=== PATIENT | female | born 1965 | race Caucasian/White ===

== ENCOUNTER 2021-02-01 10:56 | Inpatient (IN) | payer OTHER ==
[~2021-02-01] VITALS: Ht 165.1 cm; Wt 182.1 kg
[2021-02-01] MEDS ORDERED: METOPROLOL SUC200 MG PO (11:27)
--- NOTE | 2021-02-01 16:02 | NUR ---
BARIATRIC BED ORDERED FOR RENT FROM [facility], CONFIRMATION NUMBER [id number].
--- NOTE | 2021-02-01 16:05 | NUR ---
[facility] CALLED RECRUITING ASSISTANT SAID THEY ARE COMPLETELY OUT OF BARIATRIC PRODUCTS AT THIS TIME. WILL CALL TO NOTIFY WHEN A BED IS AVAILABLE IF WE STILL HAVE A NEED.
[2021-02-01] MEDS ORDERED: IBU-200200 MG PO (18:00)
[2021-02-01] MEDS ORDERED: TYLENOL325 MG PO (18:00)
[2021-02-01] MEDS ORDERED: SINUS CONGST-P1 EACH PO (18:01)
[2021-02-01] MEDS ORDERED: IMODIUM A-D2 M2 PO (18:01)
--- NOTE | 2021-02-01 18:01 | NUR ---
MED REC COMPLETE
--- NOTE | 2021-02-01 18:30 | NUR ---
PT ARRIVED TO FLOOR VIA WHEEL CHAIR. PT IS ON 2L NC. ALERT AND ORIENTED. PT DOES NOT WANT TO GET IN BED. SITTING UP IN CHAIR. STANDING WEIGHT OBTAINED. PT DOES NOT USE ASSISTIVE DEVICES. ROOM AIR TRIAL SHOWS SPO2 AT 90-91%. PT AMBULATED TO BED AND BACK STAYING AT 92%. PT THEN WALKED TO BATHROOM AND DESATED TO 86% ON RA. PT PLACED BACK ON 2L NC. FAMILY TO BRING IN CPAP FOR NIGHT. ASSESSMENT COMPLETED. VITAL TAKEN. PT WITH ELEVATED BLOOD PRESSURE. DR TALBERT NOTIFIED. DINNER ORDERED. MEDICATIONS ADMINSTERED. PT WITH NO PAIN. LUNGS SOUND DIM. 2+EDEMA PRESENT IN BILAT LE. HEART SOUNDS DISTANT. PT DENEIS SOB. CALL LIGHT AND PERSONAL ITEMS LEFT IN REACH.
--- NOTE | 2021-02-01 18:47 | EKG ---
[facility] [address] [facility] [address] [place], [place] [address] Signed Normal sinus rhythm Possible Left atrial enlargement Right axis deviation Nonspecific T wave abnormality Abnormal ECG No previous ECGs available Confirmed by JUNE TALBERT DO ([id number]) on 02/01/2021 6:47:16 PM Electronically Signed By: JUNE TALBERT DO 02/01/21 1847 PATIENT NAME: MIGUEL RECINOS NAZIA Electrocardiogram DATE OF : 69 PHYSICIAN: JUNE TALBERT DO REPORT #: [id number] REPORT IS CONFIDENTIAL AND NOT TO BE RELEASED WITHOUT AUTHORIZATION
--- NOTE | 2021-02-01 19:31 | NUR ---
SHIFT REPORT RECEIVED FROM VERONA GALEANO. PT UP IN CHAIR. SPO2 92% ON 2L NC. NO NEEDS AT THIS TIME. CALL LIGHT IN REACH.
--- NOTE | 2021-02-01 20:00 | NUR ---
in to assist pt up to the toilet, pt dressing in personal nightgown, pt tring to shower self off after bm, pt is sob after activity, rn aware, pt back to the chair, vitals done, i&os, fresh ice water given, no further needs at this time
--- NOTE | 2021-02-01 20:22 | NUR ---
ASSESSMENT, VS AND I&O COMPLTED. PT SPO2 DROPS INTO 70s WHILE WALKING TO BR AND BACK TO BED, O2 INCREASED TO 3L NC. BSC PROVIDED FOR FUTURE USE. SPO2 93% ON 3L NC AT REST. IV WNL, CDI, FLUSHED WELL. GCS 15, A&O X4. LUNGS CLEAR IN UPPER LOBES AND DIMINISHED IN LOWER LOBES. BREATHING IS SHALLOW AND DYSPNEA WITH ACTIVITY. PRONING AND I.S. EDUCATION PROVIDED, PT VERBALIZES UNDERSTANDING. PT HAS 3+ EDEMA IN BLE. PT DENIES PAIN. ICE WATER PROVIDED. NO OTHER NEEDS. CALL LIGHT IN REACH.
--- NOTE | 2021-02-01 23:03 | NUR ---
PT RESTING IN BED ON LEFT SIDE. SPO2 92% ON 3L NC. CALL LIGHT IN REACH.
--- NOTE | 2021-02-02 01:15 | NUR ---
PT CALLS TO USE BSC, PROVIDED. PT UNABLE TO PROVIDE SELF CARE AFTER BM, PROIDED. PT HAS RED AREAS IN GROIN, AREAS CLEANED AND MED ORDERED. VS AND I&O COMPLETED. SPO2 95% ON 3L CPAP. NO OTHER NEEDS AT THIS TIME. CALL LIGHT IN REACH.
--- NOTE | 2021-02-02 03:50 | NUR ---
PT SPO2 88%. IN ROOM TO ASSESS. LUNGS CLEAR IN UPPER LOBES BUT DIMINISHED IN ALL LOBES. BLE 3+ EDEMA. BIPAP O2 TURNED TO 4L, SPO2 92%. ASSESSMENT COMPLETED. NO OTHER NEEDS. CALL LIGHT IN REACH.
--- NOTE | 2021-02-02 04:09 | NUR ---
RT NOTIFIED OF PT O2 UP TO 4L WITH BIPAP.
--- NOTE | 2021-02-02 05:30 | NUR ---
VS AND I&O COMPLTED. ATTEMPTED BLOOD DRAW WITHOUT SUCCESS. PT UP TO BSC AND BACK TO BED. SPO2 93% ON CPAP WITH 4L. CALL LIGHT IN REACH.
--- NOTE | 2021-02-02 06:19 | NUR ---
PT SLEPT WELL THIS SHIFT. PT REFUSED TO PRONE BUT LAYS ON LEFT SIDE. PT USED HER OWN CPAP ON 4L MOST OF THE SHIFT. LUNG SOUNDS HAVE BEEN CLEAR BUT DIM. PT HAS A DRY OCCASSINOAL COUGH. UOS, VSS. PT SPO2 DROPS INTO THE 70s WITH ACTIVITY SO SHE IS USING A BSC. PT HAS HAD ONE EPISODE OF LOOSE STOOL THIS SHIFT. PT IS A SBA IN ROOM, DENIES USE OF ASSISTIVE DEVICE AT HOME. PT DENIES SOB WITH ACTIVITY BUT HAS TACHYPNEA FOR A COUPLE OF MINUTES AFTER TRANSFERING.
--- NOTE | 2021-02-02 08:24 | NUR ---
Assited patient to commode for void. Patient reports she did not sleep well last night due to ppl checking on her so frequently. Patient states she feels her breathing has improved this morning. Respirations are even and non labored; 4L per nc, sp02 93%. No reported needs. Personal supplies and call light within reach.
--- NOTE | 2021-02-02 09:45 | NUR ---
Patient is interested in a bed bath today sometime after her nap. Patient may eat more than 25% of breakfast a little later. Call light is in reach and patient is in chair. Vitals & I&Os are complete. RN said she would document vitals.
--- NOTE | 2021-02-02 10:29 | NUR ---
PATIENT TO BSC AND BACK TO CHAIR, SBA. CASANDRA CARE DONE. CALL LIGHT IN REACH. NO FURTHER NEEDS AT THIS TIME.
--- NOTE | 2021-02-02 14:50 | NUR ---
PATIENT IN CHAIR WATCHING TV. VITALS AND I&O'S CHARTED. FRESH WATER GIVEN. CALL LIGHT IN REACH. NO FURTHER NEEDS AT THIS TIME.
--- NOTE | 2021-02-02 15:09 | NUR ---
Patient sitting up in chair, respirations even and non lobored. Patient denies sob at rest, cpox intact, sat level 94% on 4L. Patient tolerating her diet well and is drinking plenty of fluids. Encouraged patient to get back for proning protocol alvaro; pt reports she is unable to prone and she will instead lay side to side. No current needs. Personal supplies and call light within reach.
--- NOTE | 2021-02-02 16:12 | NUR ---
CALLED THE UNIT TO LET ALL THE NURSES KNOW THAT 114 IS TO BE ALLOWED TO BE INDEPENDENT IN HER ROOM
--- NOTE | 2021-02-02 18:09 | NUR ---
Missed hat void. Hats replaced toilet.
--- NOTE | 2021-02-02 19:18 | NUR ---
SHIFT REPORT RECEIVED FROM TAMMIE GALEANO. PT UP IN CHAIR, TALKING ON PHONE. SPO2 92% ON 2L NC. CALL LIGHT IN REACH.
--- NOTE | 2021-02-02 20:45 | NUR ---
SUPPLY CHAIN SYSTEMS MANAGER ROUNDING NOTE. PT RESTING IN RECLINER. URINE SAMPLE OBTAINED. VS OBTAINED, CBG OBTAINED. PT REQUESTS FOR OINTMENT TO BE PLACED ON FEET. PT REPORTS NEW AREAS OF REDNESS AND CHAPPED SKIN TO BILATERAL TOPS OF FEET. PRIMARY RN TO ROOM. PT DENIES FURTHER NEEDS. CALL LIGHTIN REACH. WHITE BOARD UPDATED.
--- NOTE | 2021-02-02 21:30 | NUR ---
ASSESSMENT COMPLETED. SCHEDULED MEDS PROVIDED. PT REPORTS 5/10 MOON PAIN, PRN TYLENOL PROVIDED. GCS 15, A&O X4. LUNGS CLEAR IN UPPER LOBES AND DIM IN LOWER LOBES. ABD OBESE, NONTENDER, BOWEL TONES ACTIVE. 3+ BLE EDEMA, BOTH FEET ARE RED AND WARM. CMS INTACT. SPO2 92% ON 2L NC. IV WNL, CDI, FLUSHED WELL. ICE WATER PROVIDED. NO OTHER NEEDS. CALL LIGHT IN REACH.
--- NOTE | 2021-02-02 23:00 | NUR ---
PT RESTING IN BED ON LEFT SIDE. SPO2 93% ON 4L CPAP. CALL LIGHT IN REACH.
--- NOTE | 2021-02-03 00:36 | NUR ---
PT SPO2 GOES DOWN TO 80%. PT LAYING ON BACK. PT EDUCATED TO LAY MORE ON SIDE, PT MOVED TO LEFT SIDE. SPO2 GOES UP TO 91% ON CPAP 4L. NO OTHER NEEDS. CALL LIGHT IN REACH.
--- NOTE | 2021-02-03 02:17 | NUR ---
SPO2 AT 88% ON 6L CPAP. PT ASKED TO REPOSITION HER MASK AND MOVE MORE TO HER SIDE. PT FOLLOWS REQUESTS AND SPO2 IS 95%. NO OTHER NEEDS. CALL LIGHT IN REACH.
--- NOTE | 2021-02-03 04:00 | NUR ---
ASSESSMENT COMPLETED. LUNGS CLEAR IN UPPER LOBES AND DIMINISHED IN ALL LOBES. CPAP @ 4L, SPO2 94%. BLE EDEMA 3+. REDNESS AND SWELLING IN FEET UNCHANGED. NO OTHER NEEDS. CALL LIGHT IN REACH.
--- NOTE | 2021-02-03 07:44 | NUR ---
this rn received report from berta hammer. pt appears to be resting at this time
--- NOTE | 2021-02-03 08:45 | NUR ---
THIS RN IN PTS ROOM TO DO PTS ASSESSMENT AND GIVE MORNING MEDS. PT STATES THAT SHE HAS A HEADACHE THIS AM. THIS RN PROVIDED PT WITH 650MG OF TYLENOL AT THIS TIME. THIS RN DISCUSSED PTS MEDS WITH HER THIS AM AND ATTEMPTED TO TEACH HER ABOUT HER INSULIN AND BLOOD SUGAR CHECKS. PT IN DENIAL ABOUT THE POSSIBLITY OF BEING DIGANOSED WITH DIABETES, PT NOT RECEPTIVE TO THIS TEACHING AT THIS TIME. PT HAS NO OTHER NEEDS THAT NEED TO BE ADDRESSE AT THIS TIME.
--- NOTE | 2021-02-03 09:35 | NUR ---
THIS RN IN PTS ROOM TO TURN OFF PTS IV REMDESIVIR. PT STATES THAT SHE IS TIRED. THIS RN ENCOURAGE PT TO TAKE A NAP, PT NOT READY TO GET BACK TO BED. PROVIDED PT WITH A WARM BLANKET- PT WILL CALL WHEN READY TO GET BACK TO BED.
--- NOTE | 2021-02-03 10:46 | NUR ---
PT BACK TO BED PER ASSISTANCE FROM CISCO MORGAN. PT BACK ON CPAP DUE TO SLEEP APNEA DIGANIOSIS.
--- NOTE | 2021-02-03 15:35 | NUR ---
THIS RN IN TO CHECK ON PT AND GIVE MEDS. PT APPEARS TO BE RESTIN GSOUNDLY WITH CPOX IN PLACE. THIS RN TO ALLOW PT TO REST AND WILL CHECK BACK LATER FOR PRN MEDS. PT USING CPAP WHILE RESTING AND IS SIDELYING ON HER LEFT SIDE AT THIS TIME.
--- NOTE | 2021-02-03 17:25 | NUR ---
THIS RN IN PTS ROOM TO GIVE PT HER PRN MEDS AND INSULIN. PT DOING WELL AND GETS TO THE RESTROOM, PT USES THE SHOWER TO RINSE HER CASANDRA AREA DUE TO PANUS SIZE AND INABILITY TO WIPE HERSELF. THIS RN DID PROVIDE PT WITH HYDRALIZE DUE TO SBP BEING 185.
--- NOTE | 2021-02-03 19:10 | NUR ---
PSHIFT REPORT RECEIVED FROM RACHAEL GALEANO. PT RESTING IN BED. CPOX 93% ON 2L NC. CALL LIGHT IN REACH.
--- NOTE | 2021-02-03 20:30 | NUR ---
ASSESSMENT, VS AND I&O COMPLETED. SCHEDULED MEDS PROVIDED. PRN HTN MED PROVIDED. GCS 15, A&O X4. LUNGS CLEAR IN UPPER LOBES AND DIM IN LOWER LOBES. HEART TONES REGULAR. CMS INTACT. BLE EDEMA 2+ WITH MILD RED AREA ON DORSAL FEET. IV WNL, CDI, FLUSHED WELL. SPO2 95% ON 2L NC. ICE WATER PROVIDED. NO OTHER NEEDS. CALL LIGHT IN REACH.
--- NOTE | 2021-02-04 | NUR ---
PT CALLS TO REPORT SHE IS BLEEDING. SITE ON ABD OF ENOXAPARIN INJECTION IS SEEPING SMALL AMOUNT OF RED BLOOD. BANDAID APPLIED. NO OTHER NEEDS AT THIS TIME. CALL LIGHT IN REACH.
--- NOTE | 2021-02-04 02:13 | NUR ---
PT RESTING IN BED. SPO2 92% ON CPAP 6L. CALL LIGHT IN REACH.
--- NOTE | 2021-02-04 04:09 | NUR ---
PT SPO2 87%. PT WOKE AND REMINDED TO ADJUST MASK AND LAY ON SIDE. SPO2 RETURNS TO 97% ON CPAP @ 6L. ASSESSMENT COMPLETED. LUNGS CLEAR IN UPPER LOBES, DIM IN LOWER LOBES. BLE EDEMA 2+, FOOT REDNESS UNCHANGED. LEFT ABD SITE THAT BLED EARLIER IS CDI. BLANKET PROVIDED. NO OTHER NEEDS. CALL LIGHT IN REACH.
--- NOTE | 2021-02-04 06:06 | NUR ---
VS AND I&O COMPLETED. SPO2 92% ON 6L CPAP. ICE WATER PROVIDED. NO OTHER NEEDS. CALL LIGHT IN REACH.
--- NOTE | 2021-02-04 07:37 | NUR ---
this rn received report from berta hammer. pt is getting an echo done at this time.
--- NOTE | 2021-02-04 08:24 | NUR ---
this rn in pts room to give pt morning meds. pt on cpap this am. pt states that she wants to take her meds later. this rn will return later
--- NOTE | 2021-02-04 09:37 | NUR ---
THIS RN TO CHECK ON PT TO GIVE HER MORNING MEDS. PT STILL RESTING ON HER SIDE WITH CPAP IN PLACE. THIS RN WILL CEHCK ON PT LATER TO GIVE MORNING MEDS PER PT REQUEST
--- NOTE | 2021-02-04 10:20 | NUR ---
THIS RN IN PTS ROOM DUE TO PT BEING AWAKE NOW AND READY TO TAKE HER MEDS THIS AM. PT HAS CONCERNS ABOUT FINANCIALLY PAYING FOR HOSPITAL STAY- CB FROM CASE MANAGEMENT TO ANSWER THESE QUESTIONS. OTHERWISE PT IS DOING OKAY
--- NOTE | 2021-02-04 11:02 | NUR ---
PATIENT SITTING UP AT SIDE OF BED, HOUSE FATHER IN ROOM. PATIENT WILL NEED OXYGEN WITH ACTIVITY AND WANTS TO USE [facility]. STATES HER CPAP WAS THROUGH THEM. SHE HAS QUESTIONS REGARDING AFFORDING HER BILL. SHE IS REQUESTING HELP WITH IT. DISCUSSED WE CAN GIVE HER A JOSE CRUZ PACKET. 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 PATIENT DOES NOT THINK SHE NEEDS ANYTHING ELSE TO GO HOME SAFELY. SHE IS SOMEWHAT WORRIED ABOUT EXPENSES FROM BEING OFF WORK. SHE JUST STARTED THIS JOB A FEW DAYS AGO AND DOESN'T HAVE ANY SICK TIME BUILT UP OR A FIRST PAYCHECK YET. DISCUSSED OUR CHW PROGRAM HAVING RESOURCE INFORMATION TO HELP IN THIS CASE. SHE IS OPEN TO THIS. DISCUSSED CALIN OUR CHW WILL FOLLOW UP WITH HER.
--- NOTE | 2021-02-04 13:00 | NUR ---
[facility] REP HERE. 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 HE ANSWERED THOSE AT DOOR. SHE IS CALLING HER DAUGHTER WHO IS AT HOME AND HE WILL GO SET UP NOW.
--- NOTE | 2021-02-04 13:30 | NUR ---
OXYGEN WAS SET UP, DISCUSSED WITH STAFF THAT PATIENT CAN DISCHARGE WHEN THEY ARE READY. RECEIVED CONFIRMATION FROM [facility] THAT THEY RECEIVED ALL PAPERWORK THAT WAS FAXED.
[2021-02-04] MEDS ORDERED: FREESTYLE LITE1 EAC1 TD (13:41)
[2021-02-04] MEDS ORDERED: FREESTYLE FREE1 EAC1 MISC (13:45)
[2021-02-04] MEDS ORDERED: ACCU-CHEK1 EAC1 MISC (13:45)
[2021-02-04] MEDS ORDERED: INSULIN SYRING1 EA47 MISC (13:46)
[2021-02-04] MEDS ORDERED: METAMUCIL0.52 GM PO (13:48)
[2021-02-04] MEDS ORDERED: AMLODIPINE BESY10 MG PO (13:48)
[2021-02-04] MEDS ORDERED: DEXAMETHASONE6 MG PO (13:48)
[2021-02-04] MEDS ORDERED: HUMALOG100 UNITS/ SUB-Q (13:54)
--- NOTE | 2021-02-04 15:05 | NUR ---
APPROXIMATELY AT THIS TIME PT FELL IN ROOM. RAISSA GALEANO NEXT DOOR AND HEARD PT CALLING OUT FOR HELP. THIS RN NOTIFIED THAT PT HAD A FALL. PT ON FLOOR OF ROOM NEAR DOOR. PT REPORTS THAT SHE DID NOT HIT HER HEAD AND SHE STATES THAT SHE NO NOTED PAIN. PT REPORTS THAT SHE TRIPPED OVER THE "DOCTORS CHAIR" (ROLLING CHAIR) AND WAS ABLE TO CONTROL HER FALL TO THE FLOOR. PT REPORTS CONTROLLED FALL TO THE GROUND BUT WAS NOT ABLE TO GET UP. RAISSA GALEANO, BABATUNDE (HIGH TENSION TESTER), AND LARS MORGAN WERE ABLE TO GET UP WITH A 3 PERSON MODERATE ASSIST TO GET UP. WHEN PT BACK UP TO CHAIR PT STILL REPORTS NO PAIN. AWARE. PT HAS BEEN INDEPENTDENT IN ROOM WITH NO AMBULATION ISSUES.
--- NOTE | 2021-02-04 15:19 | NUR ---
EDDIE RASCON WALKED BY PATIENTS ROOM AND SAW PATIENT SITTING ON GROUND. EDDIE RASCON INFORMED THIS SHOVEL LOGGER AND WALESKA HAJI AND FRUIT PICKER IN ROOM TO HELP THIS SHOVEL LOGGER UP. ASKED PATIENT IF SHE WAS HURT OR HIT HEAD, PATIENT SAID NO TO BOTH. AND WALESKA CANO NOTIFIED. VITALS TAKEN. PATIENT NOW SITTING IN CHAIR, RN IN ROOM TO GO OVER DISCHARGE INSTRUCTIONS. CALL LIGHT IN REACH. NO FURTHER NEEDS AT THIS TIME.
[2021-02-04] MEDS ORDERED: LASIX20 MG PO (17:16)
== END 2021-02-04 16:00 | disposition home or self-care (01) | DRG 177 ==
LOC: ED 10:56 → MS 10:59 → ED 15:42 → MS 02-02 16:09
PROVIDERS: ADMIT Student in an Organized Health Care Education/Training Program; ATTEND Student in an Organized Health Care Education/Training Program
PROC: 8E0ZXY6 Isolation (ICD-10-PCS; principal; 2021-02-02)
PROC: 3E0333Z Introduction of Anti-inflammatory into Peripheral Vein, Percutaneous Approach (ICD-10-PCS; 2021-02-02)
PROC: XW033E5 Introduction of Remdesivir Anti-infective into Peripheral Vein, Percutaneous Approach, New Technology Group 5 (ICD-10-PCS; 2021-02-02)
DX: U07.1 COVID-19 (principal); J96.01 Acute respiratory failure with hypoxia; J12.82 Pneumonia due to coronavirus disease 2019; Z68.42 Body mass index [BMI] 45.0-49.9, adult; E66.01 Morbid (severe) obesity due to excess calories; E11.65 Type 2 diabetes mellitus with hyperglycemia; I10 Essential (primary) hypertension; T38.0X5A Adverse effect of glucocorticoids and synthetic analogues, initial encounter; Z79.899 Other long term (current) drug therapy
CPT/HCPCS: 36600; 71045; 80053; 80500; 81001; 82803; 83036; 83880; 84484; 85025; 85379; 93005; 93010; 93306; 94640; 94664; 94760; 94761; A9270; C9803; J1100; J1650; J1815; J1940; J7050; Q9957

== ENCOUNTER 2021-10-10 03:37 | Inpatient (IN) | payer OTHER ==
[~2021-10-10] VITALS: Ht 165.1 cm; Wt 144.3 kg
[~2021-10-10 03:37] MED LIST: ACCU-CHEK1 EAC1 MISC; AMLODIPINE BESY10 MG PO; DEXAMETHASONE6 MG PO; FREESTYLE FREE1 EAC1 MISC; FREESTYLE LITE1 EAC1 TD; HUMALOG100 UNITS/ SUB-Q; IBU-200200 MG PO; IMODIUM A-D2 M2 PO; INSULIN SYRING1 EA47 MISC; LASIX20 MG PO; METAMUCIL0.52 GM PO; METOPROLOL SUC200 MG PO; SINUS CONGST-P1 EACH PO; TYLENOL325 MG PO
[2021-10-10] MEDS ORDERED: FUROSEMIDE80 MG PO (03:59)
[2021-10-10] MEDS ORDERED: GLIMEPIRIDE2 MG PO (03:59)
[2021-10-10] MEDS ORDERED: VITAMIN D325 MC2 PO (12:03)
[2021-10-10] MEDS ORDERED: MAGNESIUM500 MG PO (12:07)
[2021-10-10] MEDS ORDERED: PROBIOTIC1 EAC1 PO (12:10)
[2021-10-23] MEDS ORDERED: PROPRANOLOL HCL20 MG PO (15:49)
[2021-10-23] MEDS ORDERED: SERTRALINE HCL50 MG PO (15:50)
[2021-10-23] MEDS ORDERED: SPIRONOLACTONE25 MG PO (15:50)
[2021-10-23] MEDS ORDERED: GLIMEPIRIDE2 MG PO (15:51)
[2021-10-23] MEDS ORDERED: CLINDAMYCIN HC300 MG PO (15:52)
== END 2021-10-24 18:10 | disposition home or self-care (01) | DRG 291 ==
LOC: ED 03:37 → MS 08:05 → CCU 08:05 → MS 10-11 18:20
PROVIDERS: ADMIT Internal Medicine; ATTEND Internal Medicine
DX: I11.0 Hypertensive heart disease with heart failure (principal); I50.23 Acute on chronic systolic (congestive) heart failure; Z68.44 Body mass index [BMI] 60.0-69.9, adult; K76.6 Portal hypertension; R18.8 Other ascites; L03.311 Cellulitis of abdominal wall; N17.9 Acute kidney failure, unspecified; Z20.822 Contact with and (suspected) exposure to COVID-19; E66.01 Morbid (severe) obesity due to excess calories; I27.20 Pulmonary hypertension, unspecified; K74.60 Unspecified cirrhosis of liver; U09.9 Post COVID-19 condition, unspecified; E11.9 Type 2 diabetes mellitus without complications; Z98.890 Other specified postprocedural states; Z79.899 Other long term (current) drug therapy; Z79.84 Long term (current) use of oral hypoglycemic drugs; K80.20 Calculus of gallbladder without cholecystitis without obstruction; F32.9 Major depressive disorder, single episode, unspecified; D72.829 Elevated white blood cell count, unspecified
CPT/HCPCS: 36415; 36569; 71045; 74176; 74177; 80048; 80053; 80202; 81001; 82553; 82728; 83036; 83540; 83550; 83605; 83690; 83735; 83880; 85025; 85060; 85610; 87040; 87502; 93306; 93971; 94640; 94660; 94760; 94761; 94762; 97110; 97112; 97116; 97162; 97165; 97530; 97535; A9270; C1751; C9803; J0692; J0696; J1120; J1650; J1815; J1940; J3370; J3490; J7030; J7060; Q9967; U0003

== ENCOUNTER 2022-01-07 15:04 | Inpatient (IN) | payer OTHER ==
[~2022-01-07] VITALS: Ht 170.2 cm; Wt 119.0 kg
--- NOTE | ~2022-01-07 | EKG ---
[facility] [address] [facility] [place], [place] [address] Draft EK completed, results pending confirmation PATIENT NAME: JORJEMIGUEL SOLIMAN Electrocardiogram DATE OF : 69 PHYSICIAN: PRELIMINARY REPORT #: [id number] REPORT IS CONFIDENTIAL AND NOT TO BE RELEASED WITHOUT AUTHORIZATION
[~2022-01-07 15:04] MED LIST changes: +CLINDAMYCIN HC300 MG PO; +FUROSEMIDE80 MG PO; +GLIMEPIRIDE2 MG PO; +MAGNESIUM500 MG PO; +PROBIOTIC1 EAC1 PO; +PROPRANOLOL HCL20 MG PO; +SERTRALINE HCL50 MG PO; +SPIRONOLACTONE25 MG PO; +VITAMIN D325 MC2 PO
[2022-01-07] MEDS ORDERED: GLIMEPIRIDE1 MG PO (17:33)
[2022-01-07] MEDS ORDERED: PROPRANOLOL HC160 MG PO (17:33)
--- NOTE | 2022-01-07 23:13 | NUR ---
PT TO FLOOR VIA STRETCHER APPROX 0. ALERT AND ORIENTED. SBA TO BR TO VOID AN UNMEASURED AMOUNT. STAFF ASSIST WITH CASANDRA CARE. BACK TO BED. ISAÍAS ACTIVITY WELL. ORDERS RECEIVED. WEIGHT AND VS OBTAINED. PRN FOR PAIN AND NAUSEA ADMIN PER EMAR. NGT TO LIWS WITH MODERATE AMOUNT GREEN DRAINAGE. BOWEL TONES HYPOACTIVE. IVF INFUSING PER ORDER. DISCUSSED PLAN OF CARE. PT ORIENTED TO ROOM AND NURSE CALL LIGHT. NO FURTHER QUESTIONS AT THIS TIME. CALL LIGHT IN REACH.
--- NOTE | 2022-01-07 23:38 | NUR ---
PT RESTING ON LEFT SIDE. HOB ELEVATED >30 DEGREES. IV ABX INFUSING PER ORDER.
--- NOTE | 2022-01-08 02:47 | NUR ---
VS AND I&O COMPLETE. PRN FOR PAIN ADMIN PER EMAR FOR HEADACHE/THROAT PAIN. PT NPO. NGT PATENT WITH 550 ML DARK GREEN DRAINAGE. IVF INFUSING PER ORDER. SpO2 80'S. PT UNABLE TO WEAR CPAP WITH NGT. OXYGEN 2L/NC PLACED. SpO2 MID 90'S. HOB ELEVATED. PT DENIES NEEDS AT THIS TIME. CALL LIGHT IN REACH.
--- NOTE | 2022-01-08 07:00 | NUR ---
BEDSIDE HANDOFF REPORT RECEIVED FROM [employer] RN. PT RESTING IN BED, PROVIDED WET WASH CLOTH. NG TO LIWS. PT DENIES OTHER NEEDS AT THIS TIME.
--- NOTE | 2022-01-08 07:01 | NUR ---
PT UP TO BR WITH SBA TO VOID. STAFF ASSIST WITH CASANDRA CARE. BACK TO BED, ISAÍAS WELL. GAIT STEADY. NGT TO LIWS WITH GREEN DRAINAGE. IV ABX INFUSING PER ORDER. DR. IBRAHIM IN TO SEE PT. VS AND I&O COMPLETE. PT DENIES FURTHER NEEDS. CALL LIGHT IN REACH.
--- NOTE | 2022-01-08 08:18 | NUR ---
PATIENT WAS LAYING IN BED, PATIENT DID NOT WANT TO AMBULATE, PATIENT NEEDED NO OTHER ASSISTANCE WARM WASH CLOTH WAS OFFERED, PATIENT SAID "MAYBE LATER"
--- NOTE | 2022-01-08 08:30 | NUR ---
PT RSTING IN BED. PT STATES PAIN IS MINIMAL AT THIS TIME, DENIES NEED FOR PAIN MEDICATION. PT ON 2L NC, LUNG SOUNDS CLEAR, DENIES SOB. BOWEL TONES HYPOACTIVE, NGT TO LIWS. CMS INTACT, WITHOUT EDEMA. IV FLUIDS CHANGED TO LR AT 150 PER ORDER. PT CONCERNED WITH TAKING IV METOPROLOL, STATES PCP "DIDN'T WANT HER ON IT BECUASE IT MAKES HER RETAIN FLUID", DISCUSSED WITH DR. SALINAS AND OK TO GIVE. WALESKA HAJI TO START SECOND IV ACCESS. PT DENIES OTHER NEEDS AT THIS TIME.
--- NOTE | 2022-01-08 09:15 | NUR ---
STARTED ADDITIONAL IV FOR MULT ADMINISTRATIONS THIS MORNING. PT TOLERATED WELL. ADMINISTERED MORNING MEDS PER ORDER. PT ASLEEP BUT RESPONDS TO QUESTIONS. DENIES CONCERNS.
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
--- NOTE | 2022-01-08 10:22 | NUR ---
PATIENT WAS UP AND USED THE RESTROOM, SHE IS SITTING ON THE SIDE OF THE BED, PATIENT VOICED HER IV SITE ON HER RIGHT ARM WAS BOTHERING HER, CHARGE NURSE NOTIFIED AND A WARM PACK WAS APPLIED. PATIENT NEEDED NO OTHER ASSISTANCE. CALL LIGHT WITHIN REACH
--- NOTE | 2022-01-08 11:15 | NUR ---
PT WITH XRAY REPORT STATING NG TUBE SHOULD BE ADVANCED, DISCUSSED WITH DR. IBRAHIM WHO STATES IT WAS ADVANCED IN ER LAST NIGHT, ORDER FOR CHEST XRAY TO CONFIRM PLACEMENT. PT UPDATED ON PLAN, DENIES OTHER NEEDS AT THIS TIME.
--- NOTE | 2022-01-08 14:45 | NUR ---
PT RESTING IN BED. IV ZOSYN AND IV METOPROLOL GIVEN, PT DECLINING 1 UNIT SS HUMALOG SHE DOES NOT TAKE INSULIN AT HOME, DISCUSSED IMPORTANCE OF BLOOD GLUCOSE CONTROL AND PT AGREEABLE IF BLOOD GLUCOSE CONTINUES TO RISE. PT REQUESTING TO SHOWER, NG TUBE CLAMPED FOR SHOWER. PT DENIES OTHER NEEDS AT THIS TIME.
--- NOTE | 2022-01-08 15:15 | NUR ---
PT ASSISTED TO SHOWER, SHOWER GIVEN BY AN RN AND KETTLE GIRL. PT REQUESTED LEGS TO BE SHAVED. LEGS SHAVED. PT ASSISTED BACK TO BED. LOTION APPLIED TO PTS LEGS AND FEET. PTS NURSE NOTIFIED THAT SHOWER IS COMPLETE. NO FURTHER NEEDS AT THIS TIME, CALL LIGHT WITHIN REACH.
--- NOTE | 2022-01-08 17:30 | NUR ---
PT WITH LOW URINE OUTPUT, REPEAT LABS WITH ELEVATED CREATININE AT 1.9. DISCUSSED WITH DR. IBRAHIM AND DR. MALLORY. DR. MALLORY TO PLACE ORDER FOR IV BOLUS AND TO INCREASE FLUIDS TO 200ML/HR.
--- NOTE | 2022-01-08 19:00 | NUR ---
report from baldev hammer, ngt to lcws, o2 2l nc, iv fusing, call light in reach.
--- NOTE | 2022-01-08 20:53 | NUR ---
in pt room for assessment - pt in good spirits, reports pain improved, ngt in place draining dark bile to lcws. bs 115 no coverage. vitals wnl. npo, call light in reach.
--- NOTE | 2022-01-08 21:59 | NUR ---
PATIENT ASSISTED TO THE RESTROOM A SBA TO BR. PATIENT ABLE TO VOID. PATIENT IS BACK IN BED RESTING. NG TO LWIS. PATIENT PLACED ON 2L VIA NC. PATIENTS IV INFUSING PER ORDER. NO FURTHER NEEDS NOTED. CALL LIGHT IN REACH.
--- NOTE | 2022-01-08 22:31 | NUR ---
IV ALARMING, NEW BAG INFUSING. PT WITH EYES CLOSED, OPENED EYES WHEN RN FIRST ENTERED ROOM, SAID THANK YOU. NO OTHER NEEDS AT THIS TIME.
--- NOTE | 2022-01-09 00:32 | NUR ---
PATIENT ASSISTED TO THE RESTROOM A 1PA W/FWW. PATIENT WAS ABLE TO VOID. PATIENT IS BACK IN BED RESTING. PATIENTS NG TO LWIS. PATIENT IS ON 2L VIA NC. PATIENTS IV INFUSING PER ORDER. PATIENT DENIES ANY PAIN OR NAUSEA. NO FURTHER NEEDS NOTED. CALL LIGHT IN REACH.
--- NOTE | 2022-01-09 01:50 | NUR ---
this rn spent 30 min+ with pt to reassure her, she is anxious about her plan of care - possible surgery. she is positive about feeling better this addmission and hopeful for recovery. denies pain, o2 2l nc with ngt in place. iv wnl. vitals complete.
--- NOTE | 2022-01-09 03:51 | NUR ---
PATIENT ASSISTED TO THE RESTROOM A 1PA. PATIENT WAS ABLE TO VOID. PATIENT IS BACK IN BED RESTING. PATIENT IS ON 2L VIA NC. PATIENTS NG PATENT AND HOOKED TO LWIS. PATIENTS IV INFUSING ORDER. PATIENT RATES PAIN AT A 2/10, PRN PAIN MEDICATION GIVEN PER REQUEST AND PER ORDER. PATIENT DENIES ANY NAUSEA. NO FURTHER NEEDS NOTED. CALL LIGHT IN REACH.
--- NOTE | 2022-01-09 05:45 | NUR ---
IV ABX TO PUMP - PT NGT TO LWIS WNL - PT EYES CLOSED, RESP EVEN, CALL LIGHT IN REACH.
--- NOTE | 2022-01-09 08:21 | NUR ---
PT ASSESSMENT COMPLETED AND VS COMPLETED. PT NOW IN TRANSPORT TO SURGERY.
--- NOTE | 2022-01-09 08:30 | NUR ---
Attempted to see pt, she is gone from the room.
--- NOTE | 2022-01-09 09:43 | NUR ---
PT RETURNED TO FLOOR FROM SURGERY. PROCEDURE NOT COMPLETED PER SURGERY NURSE DUE TO PULMONARY HTN.
--- NOTE | 2022-01-09 09:50 | NUR ---
Notified by staff, pt's surgery was cancelled.
--- NOTE | 2022-01-09 11:50 | NUR ---
ROUNDED ON PT. POTASSIUM COMPLETED. PT IS A/O, RESPIRATIONS EVEN AND REGULAR. ASSISTED PT TO RESTROOM.
--- NOTE | 2022-01-09 12:39 | NUR ---
1220- DR IBRAHIM CALLED [facility] REQUESTING TRANSFER BE STARTED TO [facility] HE HAD AREADY SPOKEN WITH DR QUINTEROS AND PT WAS TO BE TRANSFERED. STARTED THE CALL WITH TRANSFER CENTER, NO BEDS AT THIS TIME. TRANSFER CENTER WILL CALL FOR DOC TO DOC AND PLACE ON WAITLIST. 1240- ADVISED BY CHARGE NURSE THAT PTS FAMILY REQUESTED TO TRY OTHER HOSPTIALS. WHEN [facility] CHARGE NURSES SPOKE WITH DR IBRAHIM HE REQUESTED CALLS BE MAKE TO [facility]. 1241- [facility] HAS NO BEDS 1242- [facility] HAS NO BEDS
--- NOTE | 2022-01-09 14:46 | NUR ---
ROUNDED ON PT. PT ASSESSMENT COMPLETED. IV ABX RUNNING. PT IS A/O, RESPIRATIONS EVEN AND REGULAR. HOSPITALIST JUST LEFT BEDSIDE. NG TUBE ON LOW INTERMITTENT SUCTION. CALL LIGHT WITHIN REACH.
--- NOTE | 2022-01-09 16:55 | NUR ---
ROUNDED ON PT. PT APPEARS TO BE SLEEPING COMFORTABLY. IV ABX RUNNING. NG TUBE TO LOW INTERMITTENT SUCTION. CALL LIGHT WITHIN REACH.
--- NOTE | 2022-01-09 18:14 | NUR ---
ROUNED ON PT. PT IS A/O, RESPIRATIONS EVEN AND REGULAR. IV FLUIDS RUNNING. NG TUBE TO LOW INTERMITTENT SUCTION.
--- NOTE | 2022-01-09 19:20 | NUR ---
IN TO ASSIST PT TO THE TOILER, SBA, BACK TO BED, NGT REMAINS TO LOW INTERMT SUCT. NO FURTHER NEEDS AT THIS TIME
--- NOTE | 2022-01-09 19:22 | NUR ---
REPORT RECEIVED FROM NADIA GALEANO. PT IS TALKING ON THE PHONE . NO NEEDS AT THIS TIME.
--- NOTE | 2022-01-09 20:15 | NUR ---
PT IS VERY ANXIOUS, AND HUNGRY. THIS RN EXPLAINED HER SBO AND PURPOSE OF HER NGT. PT VERBALIZED UNDERSTANDING AND SAID SHE COULD TOLERATE THE NGT.
--- NOTE | 2022-01-09 20:45 | NUR ---
spoke with shayla at [facility] regarding transfer. all 4 of their hospitals do not have bed availability at this time.
--- NOTE | 2022-01-09 23:17 | NUR ---
ROUNDS; PT IS SLEEPING. IV PATENT. ABX RUNNING.
--- NOTE | 2022-01-10 00:21 | NUR ---
ROUNDED ON PT . SHE APPEARS TO BE SLEEPING ON HER LEFT SIDE.
--- NOTE | 2022-01-10 01:35 | NUR ---
IV MAINTENANCE FLUIDS HUNG. PT SLEEPING , DID NOT AWAKEN.
--- NOTE | 2022-01-10 05:45 | NUR ---
VS TAKEN, ICE CHIPS FILLED, NO FURTHER NEEDS AT THIS TIME
--- NOTE | 2022-01-10 06:42 | NUR ---
preliminary results for urine culture: gram negative rods noted w/ greater than 100,000 colony forming units per ml. dr menchaca aware, no new orders received at this time. pt already on iv abx- zosyn.
--- NOTE | 2022-01-10 07:53 | NUR ---
CALLED [facility] SPOKE WITH JIMMY. GAVE HER PERTINENT PATIENT INFORMATION. SHE STATES SHE WILL SEE WHAT THEY CAN DO, DOES STATE HOWEVER, "WE DON'T HAVE A LOT OF SURGEON AVAILABILITY AT THIS THIS TIME" WILL CALL BACK.
--- NOTE | 2022-01-10 08:12 | NUR ---
PATIENT UP IN CHAIR AM CARE COMPLETED. NO OTHER NEEDS AT THIS TIME. CALL LIGHT WITHIN REACH.
--- NOTE | 2022-01-10 08:31 | NUR ---
CALLED [facility]SF[facility] [place] TO CHECK PATIENT'S STATUS ON WAIT LIST, SPOKE WITH LEXX. HE STATES PATIENT IS STILL ON WAIT LIST, "NOT MUCH MOVEMENT SINCE SHE WAS PUT ON LAST NIGHT BUT WILL NO MORE AFTER THE DOCTORS DO THEIR ROUNDING, REEVALUATYING WAIT LIST AND WOULD KNOW MORE IN SEVERAL HOURS"
--- NOTE | 2022-01-10 08:41 | NUR ---
CALLED [facility] ([facility]), SPOKE WITH BERNADETTE. SHE STATES THEY HAVE PATIENT'S INFORMATION FROM [facility] NIGHT AND WILL CHECK WITH HOSPITAL RECEPTIONIST WHO IS BUSY AT THIS TIME, WILL HAVE THEM CALL BACK WITH AN UPDATE.
--- NOTE | 2022-01-10 08:47 | NUR ---
CALLED [facility], SPOKE WITH ENDER. STATES THEY ARE "AT CAPACITY" AND THEY HAVE "MORE THAN 30 BOARDING IN ER" THEY DECLINED PATIENT.
--- NOTE | 2022-01-10 08:55 | NUR ---
CALLED [facility], THEY WILL HAVE FIRER TUNNEL KILN CALL BACK, THEY ARE BUSY ON ANOTHER CALL.
--- NOTE | 2022-01-10 09:00 | NUR ---
Spoke with Katerine. She is awaiting placement to a higher level of care for surgery. She drowsy, but denies needs. She lives alone in an apart- ment out of town. Does not use any DME. Pt is aware she will be transfered. Anxious to have surgery completed.
--- NOTE | 2022-01-10 09:04 | NUR ---
CALLED [facility] IN [place], SPOKE WITH MADISON, SAYS THEY ARE AT CAPACITY AT THIS TIME FOR MEDICAL BEDS, THERE COULD BE A 24 HOUR WAIT BEFORE ANYTHING BECOMES AVAILABLE.
--- NOTE | 2022-01-10 09:10 | NUR ---
called [facility], no bed availability there or [facility], many people boarding in er at this time.
--- NOTE | 2022-01-10 09:15 | NUR ---
PT ASSESSMENT COMPLETED. PT SITTING IN CHAIR. ASSISTED PT TO RESTROOM. IV K+ AND ABX RUNNING. IV SITES WNL. CALL LIGHT WITHIN REACH.
--- NOTE | 2022-01-10 09:33 | NUR ---
called [facility], they still have no beds and continue to have ling wait list for medical surgical beds
--- NOTE | 2022-01-10 09:52 | NUR ---
CALLED [facility], THEY DO NOT HAVE GENRAL SURGERY AVAILABILTY AT [facility]. THEY DO NOT HAVE BEDS AT THIS TIME AT [facility] BUT WILL HAVE SURGERERY AVAILABILITY, PATIENT PLACED ON WAIT LIST.
--- NOTE | 2022-01-10 10:10 | NUR ---
PATIENT UP IN CHAIR. VITALS AND I/O'S COMPLETED. NO OTHER NEEDS, CALL LIGHT WITHIN REACH.
--- NOTE | 2022-01-10 10:17 | NUR ---
CALLED [facility] SPOKE WITH LUCY AT TRANSFER CENTER, THEY HAVE NO BED AVAILABILITY.
--- NOTE | 2022-01-10 10:24 | NUR ---
CALLED [facility] [place] THEY ARE PART OF [facility] AND THEY DO NOT HAVE VAILABILTIY
--- NOTE | 2022-01-10 10:44 | NUR ---
[facility] HAS CALLED BACK, OBTAINED MORE INFORMATION ABOUT PATIENT. THEY WILL ATTEMPT TO CONNECT THEIR [place] WITH DR IBRAHIM.
--- NOTE | 2022-01-10 11:42 | NUR ---
ROUNDED ON PT. PT A/O, RESPIRATIONS EVEN AND REGULAR. NG TUBE TO SUCTION. IV k+ RUNNING. CALL LIGHT WITHIN REACH.
--- NOTE | 2022-01-10 13:29 | NUR ---
PATIENT IN CHAIR TALKING ON PHONE. I/O'S COMPLETED. CALL LIGHT WITHIN REACH.
--- NOTE | 2022-01-10 13:46 | NUR ---
CALLED [facility], [facility], [facility], INFORMED THEM TO REMOVE PATIENT FROM WAIT LIST SHE IS NO LONGER NEEDING TRANSFER. PATIENT TO BE HAVING SURGERY HERE.
--- NOTE | 2022-01-10 14:37 | NUR ---
TO PT ROOM FOR MEDICATION ADMINISTRATION AND ASSESSMENT. ASSISTED PT TO USE COMMODE. IV FLUIDS RUNNING. CALL LIGHT WITHIN REACH.
--- NOTE | 2022-01-10 15:33 | NUR ---
TORB from Dr. Reese to decrease current IV fluids to 100ml/hr at this time. Plan is for patient to have surgery at 0900 tomorrow morning. Patient is ok to have ice chips. Strict NPO at midnight tonight. IV rate changed at this time. Patient updated with plan of care.
--- NOTE | 2022-01-10 18:44 | NUR ---
ROUNDED ON PT. PT A/O, RESPIRATIONS EVEN AND REGULAR. NG CANISTER CHANGED. ASSISTED PT TO RESTROOM. CALL LIGHT WITHIN REACH.
--- NOTE | 2022-01-10 19:27 | NUR ---
REPORT RECEIVED FROM NADIA GALEANO. PT IS SITTING UP AT THE BEDSIDE. NO NEEDS AT THIS TIME . CALL LIGHT IN REACH.
--- NOTE | 2022-01-10 22:45 | NUR ---
PT IS AWAKE AND ALERT. SHE IS XLOOKING FORWARD TO HAVING HER SURGERY HERE. FEELS CONFIDENT IN MD AND STAFF.
--- NOTE | 2022-01-10 23:41 | NUR ---
CHANGED BAG OF IVF. PT IS RESTING ON HER LEFT SIDE RELAXING TO MUSIC.
--- NOTE | 2022-01-11 00:09 | NUR ---
PT IS NPO FOR SURGERY IN THE AM. SHE IS AWARE OF NPO STATUS. ALL ORAL FLUIDS REMOVED.
--- NOTE | 2022-01-11 00:30 | NUR ---
IN TO ASSIST PT WITH TOILETING, SBA, NO FURTHER NEEDS AT THIS TIME
--- NOTE | 2022-01-11 02:44 | NUR ---
PT HAD A HEADACHE. GAVE HER AN ICE PACK TO THE BACK OF HER NECK WITH GOOD RELIEF OF HEADACHE.
--- NOTE | 2022-01-11 04:05 | NUR ---
IN TO ASSIST PT WITH TOILETING, IV PUMP ALARMING, RN IN RM, VS TAKEN, NO FURTHER NEEDS AT THIS TIME
--- NOTE | 2022-01-11 04:21 | NUR ---
CALL LIGHT ANSWERED, IV ABX COMPLETE. IV SITE WNL, SALINE LOCKED. NO ADDITIONAL NEEDS, IV MAINTENANCE FLUIDS CONTINUE TO INFUSE DIRECTED. SECOND IV SITE ALSO WNL. CALL LIGHT IN REACH.
--- NOTE | 2022-01-11 06:45 | NUR ---
DR IBRAHIM WAS NOTIFIED THAT THIS PT'S POTASSIUM WAS 3.2 AND HER MAGNESIUM WAS 1.3 WITH THIS AM LAB DRAW. HE WILL ORDER REPPLACEMENT MAGNESIUM AND POTASSIUM PRIOR TO PT GOING TO SURGERY.
--- NOTE | 2022-01-11 08:52 | NUR ---
Patient left unit for surgery at this time.
--- NOTE | 2022-01-11 11:09 | NUR ---
01/11/22 1109 Adina Goins 1104-PATIENT ARRIVED TO PACU ON 8L MASK PLACED ON 6L MASK RR EVEN. PATIENT NONAROUSABLE BUT MOVING LEFT ARM. NOT FOLLOWING COMMANDS. ABDOMINAL INCISION CDI. IVF INFUSING. WILL PUT POTASSIUM ON PUMP. SR. NGT TO LCS
--- NOTE | 2022-01-11 12:27 | NUR ---
Patient back to medical floor from surgery. Patine drowsy, wakes to verbal stimuli. Patient reports pain is tolerable at this time. NG to right nares, intact/patent, to LIWS-dark green gastric content noted. Abdominal dressing is CDI at this time. IV kcl restarted per provider order. HOB elevated at this time. Bed alarm intact.
--- NOTE | 2022-01-11 15:22 | NUR ---
Patient sitting up on side of bed, a&ox4. Patient is doing very well, tolerable pain level reported. Vital signs remain table, spo0 94% on room air. Abdominal dressing remains CDI. IV sites remains patent. Patient has no current needs. Personal supplies and call light within reach.
--- NOTE | 2022-01-11 16:25 | NUR ---
Zhou and NG removed at this time per provider order. Zhou balloon deflated prior to removal, cath tip intact. Patient now due to void.
--- NOTE | 2022-01-11 16:53 | EKG ---
[facility] [address] [place] [address] Signed Normal sinus rhythm Possible Left atrial enlargement Rightward axis Left ventricular hypertrophy with repolarization abnormality ( [place] product ) Prolonged QT Abnormal ECG When compared with ECG of 01-FEB-2021 12:07, QT has lengthened Otherwise no significant change from the last EKG. Confirmed by MUSHTAQ MALLORY MD ([id number]) on 01/11/2022 4:53:03 PM Electronically Signed By: MUSHTAQ MALLORY MD 01/11/22 1653 PATIENT NAME: MIGUEL RECINOS NAZIA Electrocardiogram DATE OF : 69 PHYSICIAN: MUSHTAQ MALLORY MD REPORT #: [id number] REPORT IS CONFIDENTIAL AND NOT TO BE RELEASED WITHOUT AUTHORIZATION
--- NOTE | 2022-01-11 17:11 | NUR ---
Admin morphine 4mg iv for 5/10 abd pain.
--- NOTE | 2022-01-11 19:20 | NUR ---
RECEIVED SHIFT REPORT. PT IS AWAKE AND ALERT. SHE FEELS GOOD, NO PAIN, NO NAUSEA. NO NEEDS. CALL LIGHT IN REACH. PT NOTES SHE IS PASSING GAS AND DID HAVE A BM TODAY.
--- NOTE | 2022-01-11 20:20 | NUR ---
IN TO GET VITALS, ICE PACKED REFRESHED
--- NOTE | 2022-01-11 23:10 | NUR ---
IN TO PROVIDE ICE CHIPS PER Q8 ORDER, PT PROVIDED A SCHEDULE, [id number], PT LIKES THIS PLAN, NO FURTHER NEEDS AT THIS TIME
--- NOTE | 2022-01-11 23:45 | NUR ---
RT WAS IN TO SET UO AND CHECK PT CPAP. PT REQUESTED PAIN MEDICATION FOR ABD PAIN SHE RATES 2/10. SHE WAS GIVEN MORPHINE 2 MG IVP WITH NS .
--- NOTE | 2022-01-12 03:07 | NUR ---
PT UP TO THE BSC WITH SBA. SHE VOIDED AND WENT BACK TO BED. HAS HER CPAP ON. DENIES NEED FOR ANY PAIN MEDS AT THIS TIME. CALLS APPROPRIATELY.
--- NOTE | 2022-01-12 05:49 | NUR ---
EARLIER THIS EVENING I SET UP HOME V-AUTO AND FILLED HUMIDIFIER. IT IS AT BEDSIDE READY FOR PATIENT USE.
--- NOTE | 2022-01-12 06:38 | NUR ---
PT STATES SHE IS FEELING VERY GOOD THIS AM. SHE IS PASSING GAS, HAS NOT HAD ANY NAUSEA, TOLERATING ICE CHIPS ORDERED. SHE DID HAVE A BM YESTERDAY BUT NONE THIS SHIFT. PT WILL ASK THE MD FOR CLEAR LIQUIDS TODAY.
--- NOTE | 2022-01-12 07:15 | NUR ---
Report received from Aurora GALEANO. Pt resting in bed, A+O, on RA, IVF infusing WNL. Pt has no needs at this time. Call light in reach, will continue plan of care.
--- NOTE | 2022-01-12 08:51 | NUR ---
PATIENT IN BED, AM CARE COMPLETED, NO OTHER NEEDS AT THIS TIME CALL LIGHT WITHIN REACH.
--- NOTE | 2022-01-12 09:08 | NUR ---
Scheduled medications administered. Pt provided with ice water and jello per request, pt in good spirits and conversational with nurses. New orders from Dr Reese, awaiting pharmacy verification. made plan with pt for PRN pain medication.
--- NOTE | 2022-01-12 09:28 | NUR ---
PATIENT RESTING IN BED, VITALS AND I/O'S COMPLETED. NO OTHER NEEDS AT THIS TIME. CALL LIGHT WITHIN REACH.
--- NOTE | 2022-01-12 09:45 | NUR ---
Medications administered. Pt provided with pudding with PO ABX and pain medication to avoid nausea. Tolerates well. Incision visualized, chandler in place, JELENA, no drainage noted. Pt denies needs. IVF infusing per order. Made plan with pt to walk in hallway.
--- NOTE | 2022-01-12 11:27 | NUR ---
Call light answered, pt requests to use BR for bowel movement. Linens changed. Pt requests shower, this RN and WALESKA Robertson in room to assist. Pt requests to walk and go outside, ambulated well and tolerated w/o pain. Soft diet menu provided. No needs at this time.
--- NOTE | 2022-01-12 13:23 | NUR ---
PO ABX administered. VSS, I/os complete. Room tidied. Pt states no pain or needs at this time, no nausea. IVF infusing WNL. Call light in reach.
--- NOTE | 2022-01-12 14:11 | NUR ---
PATIENT SITTING IN CHAIR AFTER MEAL TALKING WITH STAFF. VITALS AND I/O'S ARE COMPLETED. PATIENT HAS NO OTHER NEEDS AT THIS TIME, CALL LIGHT WITHIN REACH.
--- NOTE | 2022-01-12 16:15 | NUR ---
Pt c/o IV dressing loose after washing hands. IV dressing changed, IV patent, C/D/I. R FA IV dressing changed as also leaking- once dressing changed IV remains intact with flush.
--- NOTE | 2022-01-12 17:09 | NUR ---
PO ABX administered. Pt eating soft diet dinner and states no pain or nausea at this time. IVF infusing. No further needs. Call light in reach.
--- NOTE | 2022-01-12 17:49 | NUR ---
PATINT SITTING UP IN CHAIR, VITALS AND I/O'S COMPLETED NO OTHER NEEDS AT THIS TIME. CALL LIGHT IN REACH.
--- NOTE | 2022-01-12 19:23 | NUR ---
REPORT RECEIVED FROM DAY SHIFT RN. PT SITTING IN RECLINER ALERT AND ORIENTED. DENIES NEEDS. WHITE BOARD UPDATED. CALL LIGHT IN REACH.
--- NOTE | 2022-01-12 22:27 | NUR ---
EVENING ASSESSMENT COMPLETE. SCHEDULED MEDS ADMIN PER EMAR. PRN ADMIN FOR ABD PAIN. PT DENIES NAUSEA. UP TO BR INDEPENDENTLY TO VOID AND HAVE SMALL LOOSE BM. IVF INFUSING WNL. ABD INCISION WELL APPROXIMATED WITH ANDREW INTACT. NO REDNESS OR DRAINAGE NOTED. BOWEL TONES ACTIVE. ABD SOFT. PT DENIES QUESTIONS OR CONCERNS. CALL LIGHT IN REACH.
--- NOTE | 2022-01-13 00:35 | NUR ---
PT RESTING IN BED WITH EYES CLOSED. RESPIRATIONS EVEN. CALL LIGHT IN REACH.
--- NOTE | 2022-01-13 02:17 | NUR ---
PT RESTING IN BED WITH EYES CLOSED. RESPIRATIONS EVEN. CPAP IN PLACE. IVF INFUSING WNL. CALL LIGHT IN REACH.
--- NOTE | 2022-01-13 05:13 | NUR ---
PT RESTING IN BED WITH EYES CLOSED. RESPIRATIONS EVEN. CALL LIGHT IN REACH.
--- NOTE | 2022-01-13 06:00 | NUR ---
VS AND I&O COMPLETE. PT DENIES PAIN OR NAUSEA. IVF INFUSING WNL. PT WEARING CPAP. DENIES NEEDS AT THIS TIME. CALL LIGHT IN REACH.
--- NOTE | 2022-01-13 07:39 | OR ---
[facility] [address], [place] [address] Signed DATE OF OPERATION: 01/11/2022 SURGEON: Beto Ibrahim MD PREOPERATIVE DIAGNOSIS: Incarcerated umbilical hernia with small bowel obstruction (10-12 mm). POSTOPERATIVE DIAGNOSIS: Incarcerated umbilical hernia with small bowel obstruction (10-12 mm). PROCEDURE: Primary umbilical herniorrhaphy (prolonged and difficult at 1:30 minutes). ESTIMATED BLOOD LOSS: Minimal. FINDINGS: Katerine had omentum densely adherent to the hernia sac as well as the base of the umbilicus, which had to be sacrificed for the procedure. The knuckle of small bowel was quite viable and returned to the abdomen. She did have back bleeding on the superior aspect of the umbilicus from her portal hypertension, which responded nicely to cautery and suture. We had expected and we had to extend the fascial defect inferiorly from her previous scar and of course the scar did not bleed inferiorly. The abdominal wall was very thick in this area and therefore held the suture quite nicely. She also hopes to have an abdominal plasty at some point in the future as she continues to lose weight. INDICATIONS: Katerine is a 56-year-old obese diabetic female, who was in our hospital in October of this year. At that point, she had a body mass index around 63 and weighed over 400 pounds. She was in right heart failure with pulmonary hypertension. She has fatty liver with cirrhosis and splenomegaly. She had ascites at that time. She was diuresed aggressively for two weeks and her body mass index dropped to 53. She has gone home and taken salt out of her diet, continued on Lasix and lost additional weight to body mass index of 43. She told me in total she is down 160 pounds. She wants to get her weight down below 200 and consider abdominoplasty at that time. On this occasion, she came in the hospital with generalized abdominal pain, nausea, vomiting, diarrhea for a week. She had an incarcerated tender periumbilical lump. She also had a significant urinary tract infection with Klebsiella. She came to the emergency room for evaluation. We have admitted her and kept her on Zosyn with good results. The Klebsiella came back Electronically Signed By: BETO IBRAHIM MD 01/13/22 0739 PATIENT NAME: KATERINE RECINOS OPERATIVE REPORT DATE OF : 69 REPORT #: [id number] PHYSICIAN: BETO IBRAHIM MD PCP: MUSHTAQ MALLORY MD REPORT IS CONFIDENTIAL AND NOT TO BE RELEASED WITHOUT AUTHORIZATION [facility] [address], [place] [address] Signed sensitive to the Zosyn. All of her laboratory work has improved markedly including the BUN and creatinine as well as the total bilirubin and her white blood cell count. Of course, the CT scan confirmed the fact that there was small intestine in her hernia. Throughout the hospital stay, we have been unable to reduce that. There was concern that with her severe pulmonary hypertension in October, she would not be a surgical candidate at our small 25 bed critical access hospital. I ordered a repeat echocardiogram and it came back markedly improved. Consequently, our Hospitalist service and our Anesthesia service felt she was safe to have surgery here. She does remain an increased risk just based on the obesity and the fact that she does have Child class A cirrhosis of the liver. I had reviewed the concerns with Katerine and her daughter. We did review the risks including, but not limited to bleeding, infection, scarring, change in contour of the skin as well as recurrent hernias and other unforeseen comorbidities. She understands expected intraop and postop course. She is going to need a few days to resolve the bowel obstruction. She and her daughter had expressed understanding and wished to proceed. PROCEDURE NOTE: Katerine was taken in the operating room and placed in the supine position under general endotracheal tube anesthesia. She was already on IV Zosyn as well as subcutaneous Lovenox. SCDs were utilized. Her NG tube remained in place. A Zhou catheter was inserted with return of clear yellow urine without difficulty. Her abdomen was then prepped and draped in the usual sterile fashion. She has had a previous through a lower midline incision. We simply extended it up and around the umbilicus. We carried this down through the tissue bluntly and with the cautery until we got to the base of the umbilicus next to the abdominal wall. It was at least 6 inches deep. We went around the umbilicus and worked our way up towards the umbilical skin where it was attached to the hernia sac. Unfortunately, these two areas were chronically and densely adherent to one another. We decided to sacrifice the umbilicus with the help of a 10 blade knife and the cautery. We then entered the top of the hernia sac very carefully. We found omentum initially very densely adherent to this area. We simply divided that with the Pean clamps and 0 Vicryl ties in order to separate the top of the umbilical skin in the hernia sac from this underlying chronically inflamed omentum. As we worked our way down inferiorly and superiorly on the edge of the hernia sac, we found her knuckle of small bowel. It was pink and viable. The fascial defect was only 10 or 12 mm in diameter. We could not reduce the small bowel nor the omentum through this fascial defect. We simply extended the fascial defect inferiorly about a cm through her previous scar. Of course, that did not bleed. That allowed us to reduce the bowel quite nicely. We then reduced the omentum as well. We had to excise the hernia sac along the fascial edge and superiorly it did bleed as there was back pressure from her portal hypertension. That responded fairly well to the cautery. We then brought her small bowel back up through to examine it and it appeared quite healthy and viable. We then used a #1 interrupted [id number] Prolene sutures to bring her very thickened Electronically Signed By: BETO IBRAHIM MD 01/13/22 0739 PATIENT NAME: KATERINE RECINOS OPERATIVE REPORT DATE OF : 69 REPORT #: [id number] PHYSICIAN: BETO IBRAHIM MD PCP: MUSHTAQ MALLORY MD REPORT IS CONFIDENTIAL AND NOT TO BE RELEASED WITHOUT AUTHORIZATION [facility] [address], [place] [address] Signed abdominal wall back together. Her abdominal wall is about 10 mm thick. It held the suture very well. It gave good hemostasis on those fascial edges. We then injected local anesthetic into the abdominal wall. The wound was irrigated and suctioned out until clear. She has significant scar tissue throughout most of that wound and therefore we closed her wound in three layers with interrupted 3-0 Monocryl sutures to include the dermis. This closed all the space. We then brought the skin back together with chandler. Dry gauze and tape were then applied. We left the NG tube and Zhou catheter in place. She was awakened from anesthesia, extubated in the OR, and taken to recovery room in stable condition. Beto Ibrahim MD ALB/MODL /[id number] cc: MD Beto Rhodes MD Copies: MUSHTAQ MALLORY MD, ANDREW L MD ~ Electronically Signed By: BETO IBRAHIM MD 01/13/22 0739 PATIENT NAME: KATERINE RECINOS OPERATIVE REPORT DATE OF : 69 REPORT #: [id number] PHYSICIAN: BETO IBRAHIM MD PCP: MUSHTAQ MALLORY MD REPORT IS CONFIDENTIAL AND NOT TO BE RELEASED WITHOUT AUTHORIZATION
[2022-01-13] MEDS ORDERED: HYDROCODON-ACE1 EAC8 PO ×2 (09:05→09:07)
[2022-01-13] MEDS ORDERED: CEPHALEXIN500 M1 PO (09:45)
--- NOTE | 2022-01-14 07:27 | DS ---
[facility] [address] [place], [place] [address] Signed ADMISSION DATE: 01/08/2022 DISCHARGE DATE: 01/13/2022 FINAL DIAGNOSES: 1. Incarcerated umbilical hernia with small bowel obstruction. 2. Obesity. 3. Klebsiella urinary tract infection. PROCEDURES: 1. Primary umbilical herniorrhaphy. 2. CT scan of abdomen and pelvis. HISTORY OF PRESENT ILLNESS: Katerine is a 56-year-old obese diabetic female, who came in October of this year in [facility]. Apparently, she had COVID as well. Her body mass index was around 63. Within two weeks, she was diuresed down to a body mass index of 53. She went home and cut all the sodium out of her diet and cut back on her calories and she is down to a body mass index of 43. Overall, she was feeling much better. However, she developed periumbilical lump with generalized abdominal pain, nausea, vomiting, and dehydration for a week. She finally came to the emergency room for evaluation. The hernia could not be reduced. She turned out to have a Klebsiella urinary tract infection sensitive to multiple antibiotics including the Zosyn and now the Keflex. She was very dehydrated. CT scan showed the incarcerated umbilical hernia containing the small bowel. She also has hepatosplenomegaly consistent with her fatty liver. I had been asked to admit her as a general surgeon on-call. HOSPITAL COURSE: Katerine was admitted as above and treated conservatively and started on Zosyn. She markedly improved each day. 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 We did consult our Internal Medicine Service as well. We took her to surgery on 01/11/2022 for a prolonged and difficult primary umbilical herniorrhaphy. She has done well both intraop and postop. At this point, she is tolerating her diet, having plenty of urine output and bowel movements. The incision is healing well without any local signs or symptoms of infection. The abdomen is benign. Due to her progress, we are going to be discharging her to home. DISCHARGE PLANS AND MEDICATIONS: Katerine will be discharged to home with a prescription for Keflex 500 mg one tablet p.o. q.i.d. for an additional four days. This will give her 10 days total of antibiotics to include the Zosyn IV. She will be given [place] 10/325 one tablet p.o. q.6 hours p.r.n. for severe postoperative pain. We will dispense 20 tablets with no refills. She has to Electronically Signed By: BETO IBRAHIM MD 01/14/22 0727 PATIENT NAME: KATERINE RECINOS DISCHARGE SUMMARY DATE OF : 69 REPORT #: [id number] PHYSICIAN: BETO IBRAHIM MD PCP: MUSHTAQ MALLORY MD REPORT IS CONFIDENTIAL AND NOT TO BE RELEASED WITHOUT AUTHORIZATION [address] [address] Signed be careful with both Tylenol and ibuprofen given her hepatic and renal function. We will leave all the chandler in place. She will leave the incision open to air. She will shower and bathe as usual. She can perform her activities of daily living including walking up and down stairs, showering and bathing as usual. She should not do any heavy pushing, pulling, or lifting over about 20 pounds. She will follow her usual low-sodium diet. She will resume all her chronic medications, which includes Lasix at 80 mg p.o. daily. Interestingly, she is not on any potassium supplement. She will discuss that with her primary care provider. We had to replace her potassium here several times. She can return to work in a few days. She will come to my office for followup in 7 to 10 days. She will follow up with Dr. Mallory in the next 1 to 4 weeks as her primary care provider. I have discussed this with Katerine in detail. She has expressed understanding and agrees with the above plan. Beto Ibrahim MD ALB/MODL /[id number] cc: MD Mushtaq Patterson MD Copies: BETO IBRAHIM MD, LOHITH MD ~ Electronically Signed By: BETO IBRAHIM MD 01/14/22 0727 PATIENT NAME: KATERINE RECINOS DISCHARGE SUMMARY DATE OF : 69 REPORT #: [id number] PHYSICIAN: BETO IBRAHIM MD PCP: MUSHTAQ MALLORY MD REPORT IS CONFIDENTIAL AND NOT TO BE RELEASED WITHOUT AUTHORIZATION
== END 2022-01-13 12:05 | disposition home or self-care (01) | DRG 354 ==
LOC: ED 15:04 → MS 15:05
PROVIDERS: ADMIT Colon & Rectal Surgery; ATTEND Colon & Rectal Surgery
PROC: 0WQF0ZZ Repair Abdominal Wall, Open Approach (ICD-10-PCS; principal; 2022-01-11 09:43)
DX: K42.0 Umbilical hernia with obstruction, without gangrene (principal); N39.0 Urinary tract infection, site not specified; Z16.24 Resistance to multiple antibiotics; K76.6 Portal hypertension; E66.9 Obesity, unspecified; B96.1 Klebsiella pneumoniae [K. pneumoniae] as the cause of diseases classified elsewhere; E86.0 Dehydration; Z86.16 Personal history of COVID-19; Z98.890 Other specified postprocedural states; Z79.899 Other long term (current) drug therapy; Z20.822 Contact with and (suspected) exposure to COVID-19; I27.20 Pulmonary hypertension, unspecified; K74.60 Unspecified cirrhosis of liver; E66.01 Morbid (severe) obesity due to excess calories; E83.42 Hypomagnesemia; E87.6 Hypokalemia; I11.0 Hypertensive heart disease with heart failure; N18.30 Chronic kidney disease, stage 3 unspecified
CPT/HCPCS: 36415; 71045; 74176; 80048; 80053; 81001; 82140; 83036; 83605; 83735; 84100; 85025; 85610; 86850; 86900; 86901; 87077; 87088; 87186; 87502; 93005; 93010; 93306; A9270; C9113; J1100; J1170; J1650; J1885; J2001; J2270; J2405; J2543; J2704; J3010; J3475; J3480; J7030; J7060; J7121; U0003

== ENCOUNTER 2022-11-18 19:01 | Inpatient (IN) | payer OTHER ==
[~2022-11-18] VITALS: Ht 170.2 cm; Wt 127.8 kg
--- OUTSIDE RECORDS SUMMARY | ~2022-11-18 | XMS | Continuity of Care Document ---
Demographics + + + | Address | [address] | | | [place] [address] | + + + | Preferred Language | Unknown | + + + | Marital Status | | + + + | Denominational Affiliation | Unknown | + + + | Race | White | + + + | Ethnic Group | Not or | + + + Author + + + | Author | [facility] | + + + | Organization | [facility] | + + + | Address | [address] | | | [place] [address] | + + + | Phone | | + + + Care Team Providers + + + + | Care Market News Reporter Name | Role | Phone | + + + + Unavailable | Unavailable | + + + + Unavailable | Unavailable | + + + + Allergies No information. Encounters No information. Functional Status No information. Immunizations No information. Medications + + + + | date | description | facility | + + + + | 2022-01-13 00:00 | CEPHALEXIN | [facility] | + + + + | 2022-01-13 00:00 | FUROSEMIDE | [facility] | + + + + | 2022-01-13 00:00 | GLIMEPIRIDE | [facility] | + + + + | 2022-01-13 00:00 | GLIMEPIRIDE | [facility] | + + + + | 2021-02-04 00:00 | AMLODIPINE BESYLATE | [facility] | + + + + | 2022-01-13 00:00 | Ibuprofen | [facility] | + + + + | 2021-10-23 00:00 | SERTRALINE HCL | [facility] | + + + + | 2022-01-13 00:00 | PROPRANOLOL HCL | [facility] | + + + + | 2022-01-13 00:00 | HYDROCODONE | [facility] | | | BIT/ACETAMINOPHEN | | + + + + | 2022-01-13 00:00 | METOPROLOL SUCCINATE | [facility] | + + + + Problems + + + + | date | description | facility | + + + + | 2021-02-01 00:00 | Infection due to severe | [facility] | | | acute respiratory syndrome | | | | coronavirus 2 (SARS-CoV-2) | | + + + + | 2021-02-01 00:00 | Pneumonia due to severe | [facility] | | | acute respiratory syndrome | | | | coronavirus 2 (SARS-CoV-2) | | + + + + | 2021-02-04 00:00 | Diabetes mellitus | [facility] | + + + + | 2022-01-07 00:00 | Small bowel obstruction | [facility] | + + + + Procedures + + + + | date | description | facility | + + + + | 2022-01-11 00:00 | Repair of incarcerated | [facility] | | | hernia | | + + + + | 2022-01-11 00:00 | Repair of incarcerated | [facility] | | | hernia | | + + + + | 2022-01-09 00:00 | Laparotomy | [facility] | + + + + | 2022-01-09 00:00 | Laparotomy | [facility] | + + + + Results/Labs No information. Social History + + + + | date | description | facility | + + + + | 2022-01-13 00:00 | Unknown if ever smoked | [facility] | + + + + Vital Signs [...]
--- OUTSIDE RECORDS SUMMARY | ~2022-11-18 | XMS | Continuity of Care Document ---
Demographics + + + | Address | [address] | | | [place] [address] | + + + | Preferred Language | Unknown | + + + | Marital Status | | + + + | Faith Affiliation | Unknown | + + + | Race | White | + + + | Ethnic Group | Not or | + + + Author + + + | Author | [facility] | + + + | Organization | [facility] | + + + | Address | [address] | | | [place] [address] | + + + | Phone | | + + + Care Team Providers + + + + | Care Coin Purse Assembler Name | Role | Phone | + + + + Unavailable | Unavailable | + + + + Unavailable | Unavailable | + + + + Unavailable | Unavailable | + + + + Allergies and Intolerances + + + + + | date | description | facility | type | + + + + + | (no date) | No Known Drug | [facility] | (unknown) | | | Allergies | | | + + + + + Encounters No information. Functional Status No information. Immunizations No information. Medications + + + + | date | description | facility | + + + + | 2022-01-13 00:00 | CEPHALEXIN | [facility] | + + + + | 2022-01-13 00:00 | FUROSEMIDE | [facility] | + + + + | 2022-01-13 00:00 | GLIMEPIRIDE | [facility] | + + + + | 2022-01-13 00:00 | GLIMEPIRIDE | [facility] | + + + + | 2021-02-04 00:00 | AMLODIPINE BESYLATE | [facility] | + + + + | 2022-01-13 00:00 | Ibuprofen | [facility] | + + + + | 2021-10-23 00:00 | SERTRALINE HCL | [facility] | + + + + | 2022-01-13 00:00 | PROPRANOLOL HCL | [facility] | + + + + | 2022-01-13 00:00 | HYDROCODONE | [facility] | | | BIT/ACETAMINOPHEN | | + + + + | 2022-01-13 00:00 | METOPROLOL SUCCINATE | [facility] | + + + + Problems + + + + | date | description | facility | + + + + | 2021-02-01 00:00 | Infection due to severe | [facility] | | | acute respiratory syndrome | | | | coronavirus 2 (SARS-CoV-2) | | + + + + | 2021-02-01 00:00 | Pneumonia due to severe | [facility] | | | acute respiratory syndrome | | | | coronavirus 2 (SARS-CoV-2) | | + + + + | 2021-02-04 00:00 | Diabetes mellitus | [facility] | + + + + | 2021-10-10 08:05 | ELEVATED WHITE BLOOD CELL | [facility] | | | COUNT, UNSPECIFIED | | + + + + | 2021-10-10 08:05 | TYPE 2 DIABETES MELLITUS | [facility] | | | WITHOUT COMPLICATIONS | | + + + + | 2021-10-10 08:05 | MORBID (SEVERE) OBESITY | [facility] | | | DUE TO EXCESS CALORIES | | + + + + | 2021-10-10 08:05 | MAJOR DEPRESSIVE DISORDER, | [facility] | | | SINGLE EPISODE, UNSPECI | | + + + + | 2021-10-10 08:05 | HYPERTENSIVE HEART DISEASE | [facility] | | | WITH HEART FAILURE | | + + + + | 2021-10-10 08:05 | PULMONARY HYPERTENSION, | [facility] | | | UNSPECIFIED | | + + + + | 2021-10-10 08:05 | ACUTE ON CHRONIC SYSTOLIC | [facility] | | | (CONGESTIVE) HEART FAILU | | + + + + | 2021-10-10 08:05 | ACUTE DIASTOLIC | [facility] | | | (CONGESTIVE) HEART FAILURE | | + + + + | 2021-10-10 08:05 | UNSPECIFIED CIRRHOSIS OF | [facility] | | | LIVER | | + + + + | 2021-10-10 08:05 | PORTAL HYPERTENSION | [facility] | + + + + | 2021-10-10 08:05 | CALCULUS OF GALLBLADDER | [facility] | | | W/O CHOLECYSTITIS W/O OBST | | + + + + | 2021-10-10 08:05 | CELLULITIS OF ABDOMINAL | [facility] | | | WALL | | + + + + | 2021-10-10 08:05 | ACUTE KIDNEY FAILURE, | [facility] | | | UNSPECIFIED | | + + + + | 2021-10-10 08:05 | OTHER ASCITES | [facility] | + + + + | 2021-10-10 08:05 | POST COVID-19 CONDITION, | [facility] | | | UNSPECIFIED | | + + + + | 2021-10-10 08:05 | BODY MASS INDEX (BMI) | [facility] | | | 60.0-69.9, ADULT | | + + + + | 2021-10-10 08:05 | CORRECTION (CURRENT) USE OF | [facility] | | | ORAL HYPOGLYCEMIC DRUGS | | + + + + | 2021-10-10 08:05 | OTHER CORRECTION (CURRENT) | [facility] | | | DRUG THERAPY | | + + + + | 2021-10-10 08:05 | OTHER SPECIFIED | [facility] | | | POSTPROCEDURAL STATES | | + + + + | 2022-01-07 00:00 | Small bowel obstruction | [facility] | + + + + | 2022-04-24 08:03 | PULMONARY HYPERTENSION, | [facility] | | | UNSPECIFIED | | + + + + | 2022-04-24 08:03 | CARDIOMEGALY | [facility] | + + + + | 2022-08-29 20:14 | OBSTRUCTIVE SLEEP APNEA | [facility] | | | (ADULT) (PEDIATRIC) | | + + + + Procedures + + + + | date | description | facility | + + + + | 2022-01-11 00:00 | Repair of incarcerated | [facility] | | | hernia | | + + + + | 2022-01-11 00:00 | Repair of incarcerated | [facility] | | | hernia | | + + + + | 2022-01-09 00:00 | Laparotomy | [facility] | + + + + | 2022-01-09 00:00 | Laparotomy | [facility] | + + + + Results/Labs No information. Social History + + + + | date | description | facility | + + + + | 2022-01-13 00:00 | Unknown if ever smoked | [facility] | + + + + Vital [...]
[~2022-11-18 19:01] MED LIST changes: +CEPHALEXIN500 M1 PO; +GLIMEPIRIDE1 MG PO; +HYDROCODON-ACE1 EAC8 PO; +PROPRANOLOL HC160 MG PO
[2022-11-18] MEDS ORDERED: JARDIANCE25 MG PO (19:28)
[2022-11-18 23:00] VITALS: BP 149/89
[2022-11-19] VITALS (7 sets, daily range): BP systolic 130–175; BP diastolic 68–98
--- OUTSIDE RECORDS SUMMARY | 2022-11-19 03:31 | XMS | Continuity of Care Document ---
Demographics + + + | Address | [address] | | | [place] [address] | + + + | Preferred Language | Unknown | + + + | Marital Status | | + + + | Jew Affiliation | Unknown | + + + | Race | White | + + + | Ethnic Group | Not or | + + + Author + + + | Author | [facility] | + + + | Organization | [facility] | + + + | Address | [address] | | | [place] [address] | + + + | Phone | | + + + Care Team Providers + + + + | Care Tower Control Operator Name | Role | Phone | + + + + Unavailable | Unavailable | + + + + Unavailable | Unavailable | + + + + Allergies No information. Encounters No information. Functional Status No information. Immunizations No information. Medications + + + + | date | description | facility | + + + + | 2022-01-13 00:00 | CEPHALEXIN | [facility] | + + + + | 2022-01-13 00:00 | FUROSEMIDE | [facility] | + + + + | 2022-01-13 00:00 | GLIMEPIRIDE | [facility] | + + + + | 2022-01-13 00:00 | GLIMEPIRIDE | [facility] | + + + + | 2021-02-04 00:00 | AMLODIPINE BESYLATE | [facility] | + + + + | 2022-01-13 00:00 | Ibuprofen | [facility] | + + + + | 2021-10-23 00:00 | SERTRALINE HCL | [facility] | + + + + | 2022-01-13 00:00 | PROPRANOLOL HCL | [facility] | + + + + | 2022-01-13 00:00 | HYDROCODONE | [facility] | | | BIT/ACETAMINOPHEN | | + + + + | 2022-01-13 00:00 | METOPROLOL SUCCINATE | [facility] | + + + + Problems + + + + | date | description | facility | + + + + | 2021-02-01 00:00 | Infection due to severe | [facility] | | | acute respiratory syndrome | | | | coronavirus 2 (SARS-CoV-2) | | + + + + | 2021-02-01 00:00 | Pneumonia due to severe | [facility] | | | acute respiratory syndrome | | | | coronavirus 2 (SARS-CoV-2) | | + + + + | 2021-02-04 00:00 | Diabetes mellitus | [facility] | + + + + | 2022-01-07 00:00 | Small bowel obstruction | [facility] | + + + + Procedures + + + + | date | description | facility | + + + + | 2022-01-11 00:00 | Repair of incarcerated | [facility] | | | hernia | | + + + + | 2022-01-11 00:00 | Repair of incarcerated | [facility] | | | hernia | | + + + + | 2022-01-09 00:00 | Laparotomy | [facility] | + + + + | 2022-01-09 00:00 | Laparotomy | [facility] | + + + + Results/Labs No information. Social History + + + + | date | description | facility | + + + + | 2022-01-13 00:00 | Unknown if ever smoked | [facility] | + + + + Vital Signs + + + +---------+ | date | measurement | value | units | + + + +---------+ | 2022-01-10 00:00 | BMI | 41.1 | kg/m2 | + + + +---------+ | 2022-01-10 00:00 | height_metric | 170.18 | cm | + + + +---------+ | 2022-01-10 00:00 | height_standard | 67 | in | + + + +---------+ | 2022-01-10 00:00 | weight_metric | 119 | kg | + + + +---------+ | 2022-01-10 00:00 | weight_standard | 262.35 | lb | + + + +---------+ | 2022-01-13 00:00 | BP_diastolic | 72 | mmHg | + + + +---------+ | 2022-01-13 00:00 | BP_systolic | 138 | mmHg | + + + +---------+ | 2022-01-13 00:00 | heart_rate | 70 | /min | + + + +---------+ | 2022-01-13 00:00 | o2_saturation | 93 | % | + + + +---------+ | 2022-01-13 00:00 | respiration_rate | 18 | /min | + + + +---------+ | 2022-01-13 00:00 | temperature_metric | 36.44 | C | | | | | | + + + +---------+ | 2022-01-13 00:00 | | 97.6 | F | | | temperature_standar | | | | | d | | | + + + +---------+"
[2022-11-19] MEDS ORDERED: JARDIANCE25 MG PO (16:11)
[2022-11-19] MEDS ORDERED: PROPRANOLOL HC160 MG PO (16:12)
[2022-11-19] MEDS ORDERED: ZOLOFT50 MG PO (16:12)
[2022-11-19] MEDS ORDERED: FUROSEMIDE80 MG PO (16:12)
[2022-11-20 00:31] VITALS: BP 131/73
[2022-11-20 07:03] VITALS: BP 142/77
[2022-11-20 09:25] VITALS: BP 139/77
[2022-11-20 15:29] VITALS: BP 141/69
--- NOTE | 2022-11-20 16:46 | EKG ---
[facility] [address] [place] [address] Signed Sinus rhythm with 1st degree AV block Possible Left atrial enlargement Right axis deviation Incomplete right bundle branch block Septal infarct , age undetermined Abnormal ECG When compared with ECG of 11-JAN-2022 11:29, Incomplete right bundle branch block is now present Septal infarct is now present Confirmed by JEROD BRITO MD ([id number]) on 11/20/2022 4:46:21 PM Electronically Signed By: JEROD BRITO 11/20/22 1646 PATIENT NAME: MIGUEL RECINOS NAZIA Electrocardiogram DATE OF : 69 PHYSICIAN: JEROD BRITO REPORT #: [id number] REPORT IS CONFIDENTIAL AND NOT TO BE RELEASED WITHOUT AUTHORIZATION
[2022-11-20 18:09] VITALS: BP 146/76
[2022-11-20 21:01] VITALS: BP 157/82
[2022-11-21 05:00] VITALS: BP 144/71
[2022-11-21] MEDS ORDERED: TORSEMIDE20 MG PO (08:36)
[2022-11-21] MEDS ORDERED: LISINOPRIL10 MG PO (08:36)
[2022-11-21] MEDS ORDERED: CITALOPRAM HBR20 MG PO (08:36)
[2022-11-21] MEDS ORDERED: DOXYCYCLINE HY100 MG PO (08:38)
[2022-11-21] MEDS ORDERED: CEPHALEXIN500 M1 PO (08:38)
[2022-11-21 09:28] VITALS: BP 156/72
== END 2022-11-21 12:18 | disposition home or self-care (01) | DRG 602 ==
LOC: ED 19:01 → MS 22:28 → CCU 22:28 → MS 11-20 17:03
PROVIDERS: ADMIT Internal Medicine; ATTEND Family Medicine
PROC: 5A09357 Assistance with Respiratory Ventilation, Less than 24 Consecutive Hours, Continuous Positive Airway Pressure (ICD-10-PCS; principal; 2022-11-19)
DX: L03.115 Cellulitis of right lower limb (principal); I50.33 Acute on chronic diastolic (congestive) heart failure; Z68.42 Body mass index [BMI] 45.0-49.9, adult; I11.0 Hypertensive heart disease with heart failure; L03.116 Cellulitis of left lower limb; F32.A Depression, unspecified; R79.1 Abnormal coagulation profile; I45.10 Unspecified right bundle-branch block; I44.0 Atrioventricular block, first degree; E87.5 Hyperkalemia; I27.20 Pulmonary hypertension, unspecified; M54.50 Low back pain, unspecified; I07.1 Rheumatic tricuspid insufficiency; I77.6 Arteritis, unspecified; E11.9 Type 2 diabetes mellitus without complications; F41.9 Anxiety disorder, unspecified; E66.01 Morbid (severe) obesity due to excess calories; Z79.899 Other long term (current) drug therapy; Z98.870 Personal history of in utero procedure during pregnancy; Z86.16 Personal history of COVID-19; Z91.198 Patient's noncompliance with other medical treatment and regimen for other reason; Z99.89 Dependence on other enabling machines and devices; Z98.890 Other specified postprocedural states; Z79.01 Long term (current) use of anticoagulants; Z79.2 Long term (current) use of antibiotics
CPT/HCPCS: 36415; 71045; 80048; 80053; 81001; 83605; 83735; 83880; 84484; 85025; 85379; 87040; 93005; 93010; 93306; 93970; 94660; 96365; 96375; 99285 25; A9270; J0696; J1650; J1940; J3490

== ENCOUNTER 2023-03-17 15:58 | Emergency (ER) | payer OTHER | END 2023-03-18 04:52 | disposition short-term general hospital (02) | LOC: ED 15:58 | DX: N76.82 Fournier disease of vagina and vulva (principal); E11.22 Type 2 diabetes mellitus with diabetic chronic kidney disease; N18.9 Chronic kidney disease, unspecified; K76.0 Fatty (change of) liver, not elsewhere classified; D72.829 Elevated white blood cell count, unspecified; Z79.899 Other long term (current) drug therapy; Z20.822 Contact with and (suspected) exposure to COVID-19 ==